=== PATIENT | female | born 1965 | race Hispanic/Latino ===

== ENCOUNTER → 2017-11-03 | Outpatient (CLI) | payer SELFPAY | END | disposition home or self-care (01) | LOC: OIH 14:04 | PROVIDERS: ATTEND Internal Medicine Cardiovascular Disease | DX: Z13.6 Encounter for screening for cardiovascular disorders (principal) | CPT/HCPCS: 75571 ==

== ENCOUNTER 2019-03-13 16:00 | Inpatient (IN) | payer BC ==
[~2019-03-13] VITALS: Ht 157.5 cm; Wt 60.4 kg
[2019-03-13 15:40] LABS: BASOPHILS % (AUTO) 0.3 % (0.0-5.0); EOSINOPHILS % (AUTO) 3.9 % (0.0-8.0); HEMATOCRIT 40.1 % (36-48); MEAN CORPUSCULAR HGB CONC 31.2 g/dL (32.0-36.0); MEAN CORPUSCULAR VOLUME 86.6 fL (79-99); NEUTROPHILS % (AUTO) 57.6 % (40.0-77.0); PLATELET COUNT (AUTO) 267 K/uL (130-400); RED BLOOD CELL COUNT(AUTO) 4.63 MIL/uL (4.00-5.50); RED CELL DISTRIBUTION WIDTH 12.7 % (11.0-15.5); WHITE BLOOD COUNT (AUTO) 6.3 K/uL (4.8-10.8)
[2019-03-13 16:05] VITALS: BP 132/76
[2019-03-14] VITALS (24 sets, daily range): BP systolic 101–128; BP diastolic 56–84
[2019-03-14] MEDS ORDERED: CEFAZOLIN SODIUM 1 GM VIAL ONE (06:39)
[2019-03-14] MEDS ORDERED: LACTATED RINGERS 1000ML 1,000 ML IV ONE (06:39)
[2019-03-14] MEDS ORDERED: BUPIVACAINE/EPI/PF 0.25% 30ML VIAL IJ ONE (06:46)
[2019-03-14] MEDS ORDERED: BACITRACIN 50,000 UNIT VIAL ONE (06:47)
[2019-03-14] MEDS ORDERED: THROMBIN-JMI 20000 UNIT KIT TP ONE (06:48)
[2019-03-14] MEDS ORDERED: LIDOCAINE PF 2% 5ML ABBOJECT ONE (06:50)
[2019-03-14] MEDS ORDERED: SUCCINYLCHOLINE 200MG/10ML SYR ONE (06:50)
[2019-03-14] MEDS ORDERED: DEXAMETHASONE SOD PHOSPHATE 10MG/ML 1ML VIAL ONE (06:50)
[2019-03-14] MEDS ORDERED: PROPOFOL 10 MG/ML 20ML VIAL IV ONE (06:50)
[2019-03-14] MEDS ORDERED: NEOSTIGMINE 5MG/5ML SYR IV ONE (06:51)
[2019-03-14] MEDS ORDERED: GLYCOPYRROLATE 1 MG/5 ML SYRINGE ONE (06:51)
[2019-03-14] MEDS ORDERED: MIDAZOLAM HCL 1 MG/ML 2ML VIAL ONE (06:51)
[2019-03-14] MEDS ORDERED: FENTANYL CITRATE PF 50 MCG/1 ML 2ML VIAL ONE ×2 (06:52→08:26)
[2019-03-14] MEDS ORDERED: ONDANSETRON HCL 4 MG/2 ML VIAL ONE (06:52)
[2019-03-14] MEDS ORDERED: ROCURONIUM 10MG/1ML SYR 10 MG/ML ML ONE (06:52)
[2019-03-14] MEDS: CEFAZOLIN SODIUM 1 GM VIAL IVP ONE ×2 (06:54→07:50)
[2019-03-14] MEDS ORDERED: ACET1TAB12 PO (07:21)
[2019-03-14] MEDS ORDERED: ASCO500T9 PO (07:21)
[2019-03-14] MEDS ORDERED: NAPR220T57 PO (07:21)
[2019-03-14] MEDS ORDERED: CALC600T12 PO (07:21)
[2019-03-14] MEDS ORDERED: VITA1TAB22 PO (07:21)
[2019-03-14] MEDS ORDERED: METOCLOPRAMIDE 10 MG/2 ML VIAL ONE (08:47)
[2019-03-14] MEDS: LACTATED RINGERS 1000ML 1,000 ML IV SCH ×2 (09:39→23:31)
[2019-03-14] MEDS ORDERED: MORPHINE SULFATE 2 MG/ML 1ML SYG IVP PRN (09:45)
[2019-03-14] MEDS ORDERED: NAPROXEN SODIUM 220 MG PO PRN (09:45)
[2019-03-14] MEDS ORDERED: SODIUM CHLORIDE 0.9% 10 ML VIAL IVP PRN (09:45)
[2019-03-14] MEDS ORDERED: PROMETHAZINE HCL 25 MG/ML 1ML AMPULE IM PRN (09:45)
[2019-03-14] MEDS ORDERED: ACETAMINOPHEN-CODEINE 300/30MG TAB PO PRN (09:45)
[2019-03-14] MEDS ORDERED: MEPERIDINE-PF 25 MG/ML SYG ONE (10:19)
[2019-03-14] MEDS: DEXAMETHASONE SOD PHOSPHATE 4 MG/ML 1ML VIAL IVP SCH ×2 (11:28→16:53)
[2019-03-14] MEDS: HYDROCODONE/ACETAMINOPHEN 5/325 MG TAB PO PRN ×3 (15:25→23:32)
[2019-03-14] MEDS: CEFAZOLIN SODIUM 1 GM VIAL IVP SCH ×2 (16:53→17:45)
[2019-03-14] MEDS ORDERED: BENZOCAINE/MENTH/CETYLPYRD CL 1 EACH LOZENGE MM ONE (19:53)
[2019-03-14] MEDS ORDERED: FAMOTIDINE/PF 20 MG/2 ML VIAL IV ONE (23:22)
[2019-03-14] MEDS ORDERED: FAMOTIDINE/PF 20 MG/2 ML VIAL IV SCH (23:30)
[2019-03-14] MEDS ORDERED: PHARMACY COMMUNICATION MISC SCH (23:30)
[2019-03-14] MEDS: BENZOCAINE/MENTH/CETYLPYRD CL 1 EACH LOZENGE MM PRN (23:31)
[2019-03-15] VITALS: BP 115/68
[2019-03-15] MEDS: DEXAMETHASONE SOD PHOSPHATE 4 MG/ML 1ML VIAL IVP SCH ×2 (00:59→06:14)
[2019-03-15 04:00] VITALS: BP 115/75
--- NOTE | 2019-03-15 07:55 | NUR ---
DUE TO VOID 16 FR YU CATHETER REMOVED BY PHARMACIST HOSPITAL NURSE PRIOR TO START OF MY SHIFT. PATIENT ENCOURAGED TO INCREASE FLUID INTAKE AND NOTIFY NURSING STAFF WHEN SHE IS ABLE TO URINATE.
[2019-03-15 07:56] VITALS: BP 92/57
[2019-03-15] MEDS: HYDROCODONE/ACETAMINOPHEN 5/325 MG TAB PO PRN (08:40)
[2019-03-15] MEDS: BENZOCAINE/MENTH/CETYLPYRD CL 1 EACH LOZENGE MM PRN (08:41)
--- NOTE | 2019-03-15 08:45 | NUR ---
PATIENT REPORTS ABILITY TO VOID
[2019-03-15] MEDS ORDERED: ASCORBIC ACID 500 MG TAB PO SCH (09:00)
[2019-03-15] MEDS ORDERED: VITAMIN B COMPLEX 1 CAPSULE PO SCH (09:00)
[2019-03-15] MEDS ORDERED: CALCIUM CARBONATE 500 MG TABLET PO SCH (09:00)
--- NOTE | 2019-03-15 09:20 | NUR ---
DISCHARGE PERFORMED ANTERIOR NECK SURGICAL INCISION DRESSING CHANGE. INCISION NOTED TO BE APPROXIMATED AND ASYMPTOMATIC, LUCILA INTACT. CLEANSED SURGICAL INCISION WITH BETADINE, COVERED WITH 4X4 GAUZE, AND SECURED WITH MEDIPORE TAPE. PROVIDED DISCHARGE TEACHING REGARDING TO CONTINUE HOME MEDICATION, KEEP NECK DRESSING CLEAN AND DRY, NO SHOWERS BUT SPONGE BATHS OKAY, WEAR SOFT CERVICAL COLLAR WHEN IN A MOVING VEHICLE, AND S/S OF INFECTION AND POST-OP COMPLICATIONS TO MONITOR FOR. REVIEWED DR. NICOLE DISCHARGE INSTRUCTION SHEET WITH PATIENT. PROVIDED SUTURE REMOVAL KIT TO PATIENT AND INSTRUCTED TO TAKE TO SCHEDULED F/U WITH DR. NICOLE. REMOVED 20G IV FROM LEFT WRIST, CATHETER TIP INTACT. PATIENT VERBALIZED UNDERSTANDING OF DISCHARGE TEACHING. I ASKED PATIENT IF SHE HAS QUESTIONS REGARDING DISCHARGE TEACHING AND PATIENT REPLIED "NO." PATIENT TO BE DRIVEN HOME BY HER .
== END 2019-03-15 09:43 | disposition home or self-care (01) | DRG 473 ==
LOC: EDSTATUS 16:00 → DAHIP 03-14 06:00 → 4AH 03-14 10:22
PROVIDERS: ADMIT Neurological Surgery; ATTEND Neurological Surgery
PROC: 0RG10A0 Fusion of Cervical Vertebral Joint with Interbody Fusion Device, Anterior Approach, Anterior Column, Open Approach (ICD-10-PCS; principal; 2019-03-14 08:05)
PROC: 0RB30ZZ Excision of Cervical Vertebral Disc, Open Approach (ICD-10-PCS; 2019-03-14 08:05)
PROC: 4A11X4G Monitoring of Peripheral Nervous Electrical Activity, Intraoperative, External Approach (ICD-10-PCS; 2019-03-14 08:05)
DX: M50.123 Cervical disc disorder at C6-C7 level with radiculopathy (principal); M81.0 Age-related osteoporosis without current pathological fracture
CPT/HCPCS: 36415; 71045; 72020; 80051; 85025; 93005; A4344; G0378; J0330; J0690; J1100; J2001; J2175; J2250; J2405; J2704; J2710; J2765; J3010; J3490; J7120

== ENCOUNTER → 2019-04-07 | Outpatient (CLI) | payer BC ==
[~2019-04-07] MED LIST: ACET1TAB12 PO; ASCO500T9 PO; CALC600T12 PO; NAPR220T57 PO; VITA1TAB22 PO
== END | disposition home or self-care (01) ==
LOC: RAH 16:12
PROVIDERS: ATTEND Neurological Surgery
DX: M47.812 Spondylosis without myelopathy or radiculopathy, cervical region (principal)
CPT/HCPCS: 72040

== ENCOUNTER → 2019-07-04 | Outpatient (CLI) | payer BC ==
[~2019-07-04] MED LIST changes: +ASCO500T20 PO; -ASCO500T9 PO; -CALC600T12 PO; +CALC600T15 PO
== END | disposition home or self-care (01) ==
LOC: RAH 15:39
PROVIDERS: ATTEND Neurological Surgery
DX: M43.22 Fusion of spine, cervical region (principal); Z98.1 Arthrodesis status
CPT/HCPCS: 72040

== ENCOUNTER → 2019-07-07 | Outpatient (CLI) | payer BC ==
[~2019-07-07] MED LIST changes: +CALC600T12 PO; -CALC600T15 PO
== END | disposition home or self-care (01) ==
LOC: RAH 10:45
PROVIDERS: ATTEND Physical Medicine & Rehabilitation
DX: M25.78 Osteophyte, vertebrae (principal); M54.12 Radiculopathy, cervical region
CPT/HCPCS: 72125

== ENCOUNTER → 2019-07-26 | Outpatient (CLI) | payer BC ==
[~2019-07-26] MED LIST changes: -CALC600T12 PO; +CALC600T15 PO
== END | disposition home or self-care (01) ==
LOC: RAH 11:05
PROVIDERS: ATTEND Physical Medicine & Rehabilitation
DX: M54.12 Radiculopathy, cervical region (principal)
CPT/HCPCS: 72141

== ENCOUNTER → 2019-11-06 | Outpatient (CLI) | payer OTHER | END | disposition home or self-care (01) | LOC: RAH 15:31 | PROVIDERS: ATTEND Internal Medicine Endocrinology, Diabetes & Metabolism | DX: Z13.6 Encounter for screening for cardiovascular disorders (principal) | CPT/HCPCS: 75571 ==